=== PATIENT | female | born 1990 | race Caucasian/White ===

== ENCOUNTER 2017-04-24 11:27 | Outpatient (CLI) | payer OTHER ==
[2017-04-24 14:05] LABS: THYROID STIMULATING HORMONE 1.36 uIU/mL (0.34-5.60)
== END 2017-04-24 11:28 | disposition home or self-care (01) ==
LOC: LAB 11:27
PROVIDERS: ATTEND Obstetrics & Gynecology
DX: N92.6 Irregular menstruation, unspecified (principal)
CPT/HCPCS: 36415; 84439; 84443; 84481

== ENCOUNTER 2017-05-30 13:18 | Outpatient (CLI) | payer OTHER ==
--- NOTE | 2017-05-30 14:49 | MRI Report ---
EXAM: LEFT WRIST MRI WITHOUT CONTRAST EXAM DATE: 05/30/2017 01:58 PM. CLINICAL HISTORY: Left wrist pain for 9 months. Cyst. COMPARISON: LEFT WRIST RADIOGRAPHY 04/13/2017. TECHNIQUE: Multiplanar, multisequence T1-weighted and fluid-sensitive sequences of the wrist without contrast. Other: Marker at ventral and radial wrist corresponding to the site of concern. FINDINGS: Bones: No fractures or subluxations. No marrow edema. No bone lesions. Cartilage: The articular cartilage is unremarkable. The triangular fibrocartilage complex is unremark able. Ligaments: The scapholunate and lunotriquetral ligaments are intact. The visualized other intrinsic, extrinsic and collateral ligaments are unremarkable. Tendons: The extensor compartment I through and flexor tendons are unremarkable. Musculature: No edema or fatty atrophy. Other: The contents of the carpal tunnel, including the median nerve, are unremarkable. Guyons canal is unremarkable. There is a cluster of small ganglion cysts of overall size 5 x 5 x 2 mm in the vent ral and radial wrist, superficial to the flexor carpi radialis, corresponding to the site of concern. . There is also a separate small ganglion cyst dorsal and lateral to the trapezium measuring about 4. 5 X 2 x 1.8 mm. No joint effusions. The subcutaneous tissues are unremarkable. IMPRESSION: 1. There is a cluster of small ganglion cysts of overall size 5 x 5 x 2 mm in the ventral and radial wrist, superficial to the flexor carpi radialis, corresponding to the site of concern. 2. There is also a separate small ganglion cyst dorsal and lateral to the trapezium measuring about 4 .5 X 2 x 1.8 mm. 3. No other MRI abnormalities in the wrist. [facility] MUSCULOSKELET[facility]IOLOGY SECTION Referring Provider Line: [phone] SITE ID: [id number]
== END 2017-05-30 13:19 | disposition home or self-care (01) ==
LOC: DI 13:18
PROVIDERS: ATTEND Orthopaedic Surgery
DX: M67.432 Ganglion, left wrist (principal)

== ENCOUNTER 2017-06-13 12:46 | Day surgery (SDC) | payer OTHER ==
[2017-06-13] MEDS ORDERED: LACTATED RINGERS 1,000 ML IV ONE (12:57)
[2017-06-13 13:11] LABS: HCG UR QUAL NEGATIVE
[2017-06-13] MEDS ORDERED: BUPIVACAINE 0.25%-EPI 1:200000 PF 30 ML VIAL SUBQ ONE ×4 (15:16→15:48)
[2017-06-13] MEDS ORDERED: ONDANSETRON 4 MG/2 ML VIAL IVP ONE (16:30)
[2017-06-13] MEDS ORDERED: KETOROLAC 30 MG/ML VIAL IVP ONE (16:30)
[2017-06-13] MEDS ORDERED: DEXAMETHASONE 4 MG/ML VIAL IVP ONE (16:30)
[2017-06-13] MEDS ORDERED: METOCLOPRAMIDE 10 MG/2 ML VIAL IVP ONE (16:30)
[2017-06-13] MEDS ORDERED: PROPOFOL 200 MG/20 ML VIAL IVP ONE (16:30)
[2017-06-13] MEDS ORDERED: LIDOCAINE-MPF 2% 5 ML VIAL IM ONE (16:30)
[2017-06-13 16:54] VITALS: BP 97/58
--- NOTE | 2017-06-14 12:20 | OPERATIVE REPORT ---
DATE OF SURGERY: 06/13/2017 00:00:00 PREOPERATIVE DIAGNOSIS: Left wrist volar radial ganglion. POSTOPERATIVE DIAGNOSIS: Left wrist volar radial ganglion at the flexor carpi radialis insertion site . NAME OF PROCEDURE: Excision of ganglion, left volar radial wrist. OPERATING SURGEON: Mohan Buenrostro MD. ANESTHESIA: Local MAC. INDICATIONS FOR SURGERY: The patient is a 27-year-old female who has had an ongoing problem of a smal l ganglion cyst that is tender and bothersome at the volar radial aspect of her wrist at the insertio n point of the flexor carpi radialis. The patient has had problems with tenderness in that area and p ain at the base of her thumb that is worsened with use of her thumb. She desires excision of the gang lion. The presence of the ganglion has been identified also on MRI. FINDINGS AT SURGERY: The patient had a very small localized ganglion at the site of insertion of the distal flexor carpi radialis and extending from the sheath. This had ganglion fluid and at the presen t time was not large. It did not have extending satellite lesions. There was no other abnormality not ed about the tendon or the surrounding tissues. DESCRIPTION OF OPERATIVE PROCEDURE: The patient was taken to the operating room, was given sedation. Her left wrist was sterilely prepped and draped in the standard fashion. Esmarch was used for a tourn iquet on her forearm. The area was infiltrated with 1% lidocaine with epinephrine. Once anesthetized, a linear longitudinal incision of about 1 inch was made centered over the end of the flexor carpi ra dialis. Dissection was taken down to the flexor sheath on its radial aspect and at this point the les ion was encountered extending from the synovial sheath. This lesion and its surrounding tissue was co mpletely excised, removed, and a careful inspection was made at the base and the surrounding tissues with no other ganglion or satellite lesions found. Cautery was used to control bleeding and closure w as made with interrupted 4-0 nylon suture. Sterile dressings were applied and a well-padded splint an d the patient was taken to recovery room in stable condition. ESTIMATED BLOOD LOSS: Minimal. COMPLICATIONS: None. SPONGE AND NEEDLE COUNTS: Correct. JOB #: [id number] EXT JOB #:[id number]
== END 2017-06-13 12:47 | disposition home or self-care (01) ==
LOC: SDS 12:46
PROVIDERS: ATTEND Orthopaedic Surgery
PROC: 0LB60ZZ Excision of Left Lower Arm and Wrist Tendon, Open Approach (ICD-10-PCS; principal; 2017-06-13 14:15)
DX: M67.432 Ganglion, left wrist (principal)
CPT/HCPCS: 25111; 81025; J7120

== ENCOUNTER 2018-10-03 10:53 | Outpatient (CLI) | payer OTHER ==
--- NOTE | 2018-10-03 13:58 | Ultrasound Report ---
Reason: BREAST PAIN, LEFT Procedure Date: 10/03/2018 Accession Number: [id number] / [id number] Procedure: US - Breast Unilateral Limited CPT Code: FULL RESULT: EXAM: Breast Unilateral Limited DATE: 10/03/2018 11:32 AM CLINICAL HISTORY: BREAST PAIN, LEFT COMPARISON: None. TECHNIQUE: Targeted ultrasound was performed of the left breast in the area of clinical concern in the periareolar region. Color Doppler was employed as appropriate. FINDINGS: Only normal breast tissue with out architectural distortion collection, mass or abnormal vascularity by color Doppler is seen. IMPRESSION: Negative examination RECOMMENDATION: Clinical follow-up. BIRADS CATEGORY 1: Negative [facility]
== END 2018-10-03 10:54 | disposition home or self-care (01) ==
LOC: DI 10:53
PROVIDERS: ATTEND Obstetrics & Gynecology
DX: N64.4 Mastodynia (principal); N63.20 Unspecified lump in the left breast, unspecified quadrant
CPT/HCPCS: 76642

== ENCOUNTER 2018-10-29 02:06 | Outpatient (CLI) | payer OTHER | END 2018-10-29 02:07 | disposition critical access hospital (66) | LOC: EMS 02:06 | PROVIDERS: ATTEND Surgery | DX: R11.2 Nausea with vomiting, unspecified (principal); R25.1 Tremor, unspecified; R40.0 Somnolence | CPT/HCPCS: A0425; A0427 ==

== ENCOUNTER 2018-10-29 02:17 | Emergency (ER) | payer OTHER ==
[2018-10-29] MEDS ORDERED: ONDANSETRON 4 MG/2 ML VIAL IVP STA ×2 (02:29→04:54)
[2018-10-29] MEDS ORDERED: SODIUM CHLORIDE 0.9% 1,000 ML IV ONE ×2 (02:29→04:04)
--- NOTE | 2018-10-29 02:34 | ED Physician Documentation ---
PD HPI NVD - Stated complaint Stated Complaint: VOMITING - Chief complaint Chief Complaint: Abd Pain - History obtained from History obtained from: Patient - History of Present Illness Timing - onset: How many minutes ago (90) Timing - details: Still present Associated symptoms: Dysuria Contributing factors: No: Bad food, Travel, Recent antibiotics, Alcohol use - Additonal information Additional information: The patient is an otherwise healthy 28-year-old female who arrives via ambulance after she developed vomiting and diarrhea about 1 hours prior to arrival. She denies abdominal pain, but does report urgency of urination prior to the onset of her vomiting. She has had tremors, but denies fever. Her last menstrual period was 1 week ago. She denies headache, sore throat, or cough. Review of her medical records reveals similar presentation with viral gastroenteritis 2 1/2 years ago. Review of Systems Constitutional: reports: Other (tremors). denies: Fever Eyes: denies: Discharge Ears: denies: Tinnitus/ringing Nose: denies: Congestion Throat: denies: Sore throat Cardiac: denies: Chest pain / pressure Respiratory: denies: Dyspnea, Cough GI: reports: Nausea, Vomiting, Diarrhea. denies: Abdominal Pain : reports: Dysuria, Hesitancy Skin: denies: Rash Musculoskeletal: denies: Back pain Neurologic: denies: Focal weakness, Numbness, Headache PD PAST MEDICAL HISTORY - Past Medical History Cardiovascular: None Respiratory: None Endocrine/Autoimmune: None GI: None : None HEENT: Chronic vision loss Psych: Depression Musculoskeletal: None Derm: None - Past Surgical History Past Surgical History: No HEENT: Other - Present Medications Home Medications: Ambulatory Orders Medication Instructions Recorded Confirmed Albuterol Sulfate [Proair Hfa 1 - 2 puffs INH Q4H PRN 06/12/17 06/13/17 Inhaler] Multivitamin [Multiple Vitamins] 1 each PO DAILY 06/12/17 06/13/17 Nitrofurantoin Monohyd/M-Cryst 100 mg PO BID #10 capsule 10/29/18 [Macrobid 100 mg Capsule] Phenazopyridine HCl [Pyridium] 200 mg PO TID PRN #6 tablet 10/29/18 Potassium Chloride [K-Dur] 20 meq PO DAILY #7 tablet 10/29/18 Promethazine [Phenergan] 25 mg PO Q6H PRN #10 tab 10/29/18 - Allergies Allergies/Adverse Reactions: Allergies Allergy/AdvReac Type Severity Reaction Status Date / Time cephalexin monohydrate * Allergy Rash Verified 10/29/18 02:27 [From Keflex] - Social History Does the pt smoke?: No Smoking Status: Never smoker Does the pt drink ETOH?: No Does the pt have substance abuse?: No - Immunizations Immunizations are current?: Yes - POLST Patient has POLST: No PD ED PE NORMAL - Vitals Vital signs reviewed: Yes (tachycardic) - General General: Alert and oriented X 3, Well developed/nourished - HEENT HEENT: Atraumatic, Moist mucous membranes, Pharynx benign - Neck Neck: Supple, no meningeal sign, No adenopathy - Cardiac Cardiac: No murmur, Other (Rapid rate, regular rhythm.) - Respiratory Respiratory: No respiratory distress, Clear bilaterally - Abdomen Abdomen: Soft, Non tender - Back Back: No CVA TTP - Derm Derm: No rash - Extremities Extremities: No edema, No calf tenderness / cord - Neuro Neuro: Alert and oriented X 3, No motor deficit, Normal speech Results - Vitals Vitals: Oxygen O2 Source Room air - Labs Labs: Microbiology 10/29/18 04:20 Urine Culture - Final Urine,Clean Catch 10-50,000 COLONIES/ML Polymicrobial growth including potential pathogens. This is suggestive of skin or other contamination. Laboratory Tests 10/29/18 10/29/18 10/29/18 02:38 02:38 04:20 WBC 19.3 H RBC 4.59 Hgb 13.9 Hct 41.3 MCV 89.9 MCH 30.2 MCHC 33.6 RDW 12.9 Plt Count 238 MPV 7.7 L Neut # (Auto) 16.1 H Lymph # (Auto) 1.2 L [place] # (Auto) 2.0 H Eos # (Auto) 0.0 Baso # (Auto) 0.0 Absolute Nucleated RBC 0.00 Nucleated RBC % 0.0 Sodium 139 Potassium 3.1 L Chloride 106 Carbon Dioxide 21 Anion Gap 12.0 BUN 17 Creatinine 0.7 Estimated GFR (MDRD) 99 Glucose 131 H Calcium 9.2 Total Bilirubin 1.0 AST 21 ALT 14 Alkaline Phosphatase 39 L Total Protein 7.4 Albumin 4.3 Globulin 3.1 Albumin/Globulin Ratio 1.4 Lipase 30 Urine Color YELLOW Urine Clarity CLEAR Urine pH 7.0 Ur Specific [place] 1.010 Urine Protein NEGATIVE Urine Glucose (UA) NEGATIVE Urine Ketones TRACE Urine Occult Blood MODERATE H Urine Nitrite NEGATIVE Urine Bilirubin NEGATIVE Urine Urobilinogen 0.2 (NORMAL) Ur Leukocyte Esterase SMALL H Urine RBC 6-10 H Urine WBC >25 H Ur Squamous Epith Cells RARE Squamous Urine Bacteria Few Ur Microscopic Review INDICATED Urine Culture Comments INDICATED Urine HCG, Qual NEGATIVE PD MEDICAL DECISION MAKING - ED course Complexity details: reviewed old records, reviewed results, re-evaluated patient, considered differential, d/w patient ED course: The patient's presentation is significant for urinary tract infection, with a positive urinalysis. Culture and sensitivity are pending. Her vomiting may be due to the urinary tract infection, but gastroenteritis is also a consideration. Her presentation does not suggest pyelonephritis, and I doubt sepsis. Her chemistry panel does reveal mild hypokalemia, with a potassium of 3.1. Treatment in the emergency department included administration of normal saline 2 L IV, Zofran 4 mg IV 2, potassium 20 mEq orally, Macrobid 1 tablet orally, and Pyridium 200 mg orally. She is being discharged with prescriptions for Macrobid, Pyridium, and supplemental potassium. I discussed with her the expected course of illness, antibiotic treatment and outpatient follow-up, as well as potentially worrisome signs or symptoms that should prompt reevaluation in the emergency department. Departure - Departure Disposition: 01 Home, Self Care Clinical Impression: Gastroenteritis, Dehydration, Hypokalemia Urinary tract infection Qualifiers: Urinary tract infection type: acute cystitis Hematuria presence: without hematuria Qualified Code(s): N30.00 - Acute cystitis without hematuria Condition: Stable Instructions: ED Gastroenteritis Vs Food Poison, ED UTI Cystitis Female Follow-Up: Zeynep Tesfaye MD [Provider Admit Priv/Credential] - Prescriptions: Nitrofurantoin Monohyd/M-Cryst [Macrobid 100 mg Capsule] 100 mg PO BID #10 capsule Phenazopyridine HCl [Pyridium] 200 mg PO TID PRN #6 tablet PRN Reason: dysuria Potassium Chloride [K-Dur] 20 meq PO DAILY #7 tablet Promethazine [Phenergan] 25 mg PO Q6H PRN #10 tab PRN Reason: Nausea / Vomiting Comments: Drink plenty of fluids, including cranberry juice. Take Macrobid twice daily as prescribed. Take Pyridium as prescribed if needed for dysuria. You can use Phenergan as prescribed if needed for nausea. Take potassium once daily for 7 days as prescribed. Follow-up with your primary physician within 1-2 weeks. Call to schedule appointment. Return to the emergency department if you develop increasing abdominal pain, persistent vomiting, fever with shaking chills, or otherwise worsening symptoms. Discharge Date/Time: 10/29/18 06:41
[2018-10-29 02:50] LABS: BASOPHILS % (AUTO) 0.2 %; EOSINOPHILS % (AUTO) 0.1 %; HGB - HEMOGLOBIN 13.9 g/dL (12.0-16.0); LYMPHOCYTES # (AUTO) 1.2 10^3/uL (1.5-3.5); LYMPHOCYTES % (AUTO) 6.2 %; MEAN CORPUSCULAR HEMOGLOBIN 30.2 pg (27.0-31.0); MEAN CORPUSCULAR HGB CONC 33.6 g/dL (32.0-36.0); MEAN CORPUSCULAR VOLUME 89.9 fL (81.0-99.0); MEAN PLATELET VOLUME 7.7 fL (7.9-10.8); MONOCYTES % (AUTO) 10.2 %; NEUTROPHILS # (AUTO) 16.1 10^3/uL (1.5-6.6); NEUTROPHILS % (AUTO) 83.3 %; PLT - PLATELET COUNT 238 10^3/uL (130-450); RED BLOOD COUNT 4.59 10^6/uL (4.20-5.40); RED CELL DISTRIBUTION WIDTH 12.9 % (12.0-15.0); WHITE BLOOD COUNT 19.3 x10^3/uL (4.8-10.8)
[2018-10-29 02:56] LABS: ALBUMIN 4.3 g/dL (3.2-5.5); ALBUMIN/GLOBULIN RATIO 1.4 (1.0-2.2); CALCIUM 9.2 mg/dL (8.5-10.3); CREATININE 0.7 mg/dL (0.4-1.0); TOTAL PROTEIN 7.4 g/dL (6.7-8.2)
[2018-10-29] MEDS ORDERED: POTASSIUM CHLORIDE 20 MEQ TABLET PO STA (04:18)
[2018-10-29 04:26] VITALS: BP 102/69
[2018-10-29 04:38] LABS: BILIRUBIN,URINE NEGATIVE (NEGATIVE); GLUCOSE, URINE (UA) NEGATIVE (NEGATIVE); KETONES,URINE (UA) TRACE mg/dL (NEGATIVE); LEUKOCYTE ESTERASE, URINE SMALL (NEGATIVE); NITRITE,URINE NEGATIVE (NEGATIVE); OCCULT BLOOD,URINE MODERATE (NEGATIVE); PROTEIN,URINE NEGATIVE (NEGATIVE); UROBILINOGEN,URINE 0.2 (NORMAL) E.U./dL (NORMAL)
[2018-10-29 04:39] LABS: CLARITY,URINE CLEAR (CLEAR)
[2018-10-29 04:40] LABS: HCG UR QUAL NEGATIVE
[2018-10-29 04:44] LABS: BACTERIA,URINE Few /HPF (None Seen); SQUAMOUS EPITHELIAL CELL,UR RARE Squamous (<= Few)
[2018-10-29] MEDS ORDERED: NITROFURANTOIN MACRO 100 MG CAPSULE PO STA (04:50)
[2018-10-29] MEDS ORDERED: PHENAZOPYRIDINE 100 MG TABLET PO STA (04:50)
== END 2018-10-29 06:41 | disposition home or self-care (01) ==
LOC: EDUNIT# → ED 02:17
DX: N30.00 Acute cystitis without hematuria (principal); K52.9 Noninfective gastroenteritis and colitis, unspecified; E86.0 Dehydration; E87.6 Hypokalemia
CPT/HCPCS: 36415; 80053; 81001; 81025; 83690; 85025; 87086; 96361; 96374; 96375; 99283; 99284; A9270; 81003

== ENCOUNTER 2018-10-31 09:00 | Outpatient (CLI) | payer OTHER ==
[2018-10-31 19:15] LABS: BILIRUBIN,URINE NEGATIVE (NEGATIVE); KETONES,URINE (UA) NEGATIVE (NEGATIVE); LEUKOCYTE ESTERASE, URINE NEGATIVE (NEGATIVE); OCCULT BLOOD,URINE NEGATIVE (NEGATIVE); PH,URINE 5.5 PH (5.0-7.5)
[2018-10-31 19:37] LABS: CLARITY,URINE CLEAR (CLEAR)
[2018-10-31 19:38] LABS: BACTERIA,URINE None Seen /HPF (None Seen); RBC,URINE None Seen /HPF (0-5); SQUAMOUS EPITHELIAL CELL,UR MOD Squamous (<= Few)
== END 2018-10-31 09:01 | disposition home or self-care (01) ==
LOC: LAB.WCP 09:00
PROVIDERS: ATTEND Physician Assistant
DX: R30.0 Dysuria (principal)
CPT/HCPCS: 81001; 87086

== ENCOUNTER 2018-11-27 09:40 | Outpatient (CLI) | payer OTHER | END 2018-11-27 09:41 | disposition home or self-care (01) | LOC: LAB.WCP 09:40 | PROVIDERS: ATTEND Family Medicine | DX: N12 Tubulo-interstitial nephritis, not specified as acute or chronic (principal) | CPT/HCPCS: 87086 ==

== ENCOUNTER 2019-07-29 11:10 | Outpatient (CLI) | payer OTHER | END 2019-07-29 23:59 | disposition home or self-care (01) | LOC: LAB.WCP 11:10 | PROVIDERS: ATTEND Physician Assistant | DX: F32.9 Major depressive disorder, single episode, unspecified (principal) | CPT/HCPCS: 36415; 82306; 84443 ==

== ENCOUNTER 2020-09-30 13:18 | Outpatient (CLI) | payer OTHER ==
--- NOTE | 2020-10-01 08:53 | Ultrasound Report ---
PROCEDURE: Head or Neck Soft Tissue INDICATIONS: LYMPHADENOPATHY, THYROMEGALY TECHNIQUE: Real time scanning was performed of the neck region of interest, with image documentation . COMPARISON: None. FINDINGS: The thyroid was evaluated sonographically and the isthmus is seen to be normal in thickness at 2 mm. The right thyroid lobe measures 1.3 x 1.5 x 5.4 cm and the left measures 1.2 x 1.7 x 5.5 cm . No solid or partially solid thyroid mass is found incidental note is made of a small right inferior thyroid colloid cyst measuring less than 5 mm. There is a mildly prominent right submandibular lymph node measuring up to 2.5 x 0.8 x 2.2 cm. Normal cortical thickness of 3 mm. IMPRESSION: The thyroid gland is not significantly enlarged, as discussed above. No solid thyroid nodules found. Lymph node with normal cortical thickness noted at the right submandibular region, measuring 2.5 x 0. 8 x 2.2 cm and with a normal cortical thickness of only 3 mm. Continued clinical follow-up is recomme nded, and if unusual symptoms persist or increase follow-up by contrast-enhanced neck CT scanning lik michael is warranted. Reviewed by: Shane Rogers MD on 10/01/2020 8:51 AM PST Approved by: Shane Rogers MD on 10/01/2020 8:51 AM PST Station ID: [id number]
== END 2020-09-30 13:19 | disposition home or self-care (01) ==
LOC: DI 13:18
PROVIDERS: ATTEND Physician Assistant
DX: R59.1 Generalized enlarged lymph nodes (principal)

== ENCOUNTER 2022-08-17 07:05 | Emergency (ER) | payer OTHER ==
--- NOTE | 2022-08-17 09:00 | XRAY Report ---
PROCEDURE: Chest 1 View X-Ray INDICATIONS: cough/SOA TECHNIQUE: One view of the chest was acquired. COMPARISON: None. FINDINGS: Surgical changes and devices: None. Lungs and pleura: No pleural effusions or pneumothorax. Lungs are clear. Mediastinum: Mediastinal contours appear normal. Heart size is normal. Bones and chest wall: No suspicious bony lesions. Overlying soft tissues appear unremarkable. IMPRESSION: No acute process. Reviewed by: Abhishek Grimaldo MD on 08/17/2022 8:58 AM [facility] Approved by: Abhishek Grimaldo MD on 08/17/2022 8:58 AM [facility] Station ID: [id number]
[2022-08-17 10:08] LABS: B. PARAPERTUSSIS- RESP PCR PAN NOT DETECTED; B. PERTUSSIS- RESP PCR PANEL NOT DETECTED; C. PNEUMONIAE- RESP PCR PANEL NOT DETECTED; CORONAVIRUS 229E-RESP PCR NOT DETECTED; CORONAVIRUS HKU1-RESP PCR NOT DETECTED; CORONAVIRUS NL63-RESP PCR NOT DETECTED; CORONAVIRUS OC43-RESP PCR NOT DETECTED; HUMAN METAPNEUMOVIRUS NOT DETECTED; INFLUENZA A- RESP PCR PANEL NOT DETECTED; INFLUENZA B - RESP PCR PANEL NOT DETECTED; M. PNEUMONIAE- RESP PCR PANEL NOT DETECTED; PARAINFLUENZA VIRUS 1 NOT DETECTED; PARAINFLUENZA VIRUS 2 NOT DETECTED; PARAINFLUENZA VIRUS 3 NOT DETECTED; PARAINFLUENZA VIRUS 4 NOT DETECTED; RHINOVIRUS/ENTEROVIRUS NOT DETECTED; RSV- RESP PCR PANEL NOT DETECTED; SARS-CoV-2 -RESP PCR PANEL NOT DETECTED
--- NOTE | 2022-08-17 10:53 | ED Physician Documentation ---
PD HPI DYSPNEA - Stated complaint Stated Complaint: SOA, COLD HANDS/FEET - Chief complaint Chief Complaint: Resp - History obtained from History obtained from: Patient - Additional information Additional information: Patient is a 32-year-old female with a history of asthma presenting for evaluation of nonproductive cough and feeling short of breath for 1 month. She reports having the flu over a month ago and since that time her asthma has continued to flare up. She at times needs to use her rescue inhaler up to 4-5 times a day. She was recently seen by her primary care provider who started her on Flovent twice a day. She was also given a prescription for prednisone to use as needed. She took 1 dose yesterday but it only gave her some improvement for a few hours.She denies fever, sore throat, chest pain, labored breathing, abdominal pain. Review of Systems Constitutional: denies: Fever Nose: denies: Congestion Cardiac: denies: Chest pain / pressure Respiratory: reports: Dyspnea, Cough GI: denies: Abdominal Pain Neurologic: denies: Headache PD PAST MEDICAL HISTORY - Past Medical History Cardiovascular: None Respiratory: None Endocrine/Autoimmune: None GI: None : None HEENT: Chronic vision loss Psych: Depression Musculoskeletal: None Derm: None - Past Surgical History Past Surgical History: No HEENT: Other - Present Medications Home Medications: Ambulatory Orders Medication Instructions Recorded Confirmed Albuterol Sulfate [Proair Hfa 1 - 2 puffs INH Q4H PRN 06/12/17 08/17/22 Inhaler] buPROPion [Wellbutrin Sr] 150 mg PO DAILY 08/17/22 08/17/22 busPIRone [Buspar] 10 mg PO BID 08/17/22 08/17/22 predniSONE [Deltasone] 60 mg PO DAILY 5 Days #15 tablet 08/17/22 - Allergies Allergies/Adverse Reactions: Allergies Allergy/AdvReac Type Severity Reaction Status Date / Time cephalexin monohydrate * Allergy Rash Verified 08/17/22 07:25 [From Keflex] - Social History Does the pt smoke?: No Smoking Status: Never smoker Does the pt drink ETOH?: No Does the pt have substance abuse?: No - Immunizations Immunizations are current?: Yes - POLST Patient has POLST: No PD ED PE NORMAL - General General: Alert and oriented X 3, No acute distress, Well developed/nourished - HEENT HEENT: Atraumatic, Moist mucous membranes, Pharynx benign - Neck Neck: Supple, no meningeal sign - Cardiac Cardiac: RRR, No murmur - Respiratory Respiratory: No respiratory distress, Clear bilaterally - Extremities Extremities: No edema, No calf tenderness / cord - Neuro Neuro: Normal speech Results - Vitals Vitals: Vital Signs - 24 hr 08/17/22 08/17/22 07:22 11:08 Temperature 37.5 C Heart Rate 94 71 Respiratory 16 Rate Blood Pressure 102/66 103/69 O2 Saturation 98 100 Oxygen O2 Source Room air - Labs Labs: Laboratory Tests 08/17/22 09:00 Nasal Adenovirus (PCR) NOT DETECTED Nasal B. parapertussis DNA (PCR) NOT DETECTED Nasal Coronavir 229E PCR NOT DETECTED Nasal Coronavir HKU1 PCR NOT DETECTED Nasal Coronavir NL63 PCR NOT DETECTED Nasal Coronavir OC43 PCR NOT DETECTED Nasal Enterovir/Rhinovir PCR NOT DETECTED Nasal Influenza B PCR NOT DETECTED Nasal Influenza A PCR NOT DETECTED Nasal Parainfluen 1 PCR NOT DETECTED Nasal Parainfluen 2 PCR NOT DETECTED Nasal Parainfluen 3 PCR NOT DETECTED Nasal Parainfluen 4 PCR NOT DETECTED Nasal RSV (PCR) NOT DETECTED Nasal B.pertussis DNA PCR NOT DETECTED Nasal C.pneumoniae (PCR) NOT DETECTED Dominick Human Metapneumo PCR NOT DETECTED Nasal M.pneumoniae (PCR) NOT DETECTED Nasal SARS-CoV-2 (PCR) NOT DETECTED PD Medical Decision Making - ED course Complexity details: reviewed results, re-evaluated patient ED course: Patient presenting for evaluation of a nonproductive cough that has been lingering for 1 month and at times requiring More frequent use of her albuterol. She has only tried 1 dose of prednisone which and checking her prescriptions looks to be only 20 mg.I suspect that her recent viral illness has exacerbated her asthma and feel that a steroid burst would be helpful. Discussed this with the patient who is agreeable. We will start the patient on a 5-day course of steroids. Patient counseled on need for follow-up with her PCP. She does not appear labored with her breathing. Her chest x-ray is negative for pneumonia.PERC negative. Departure - Departure Disposition: 01 Home, Self Care Clinical Impression: Asthma with exacerbation Condition: Stable Instructions: Asthma Dc Prescriptions: predniSONE [Deltasone] 60 mg PO DAILY 5 Days #15 tablet Comments: I am prescribing a 5-day course of prednisone in hopes of getting this asthma exacerbation under control.I have sent the prescription to [email or web address] in [place]. Please complete the full course of the prednisone. Please use your inhalers as directed. Please have close follow-up with your primary care doctor if your symptoms or not improving. Return to the ER if you have worsening symptoms such as labored breathing or any other concerns. Your respiratory panel which checks for COVID, influenza, RSV and a number of other cold viruses is negative. Your chest x-ray is clear and there are no signs of pneumonia. Discharge Date/Time: 08/17/22 11:08
[2022-08-17 11:09] VITALS: BP 103/69
== END 2022-08-17 11:08 | disposition home or self-care (01) ==
LOC: ED 07:05
DX: J45.901 Unspecified asthma with (acute) exacerbation (principal); Z20.822 Contact with and (suspected) exposure to COVID-19
CPT/HCPCS: 87633; 99284

== ENCOUNTER 2022-08-24 13:25 | Emergency (ER) | payer OTHER ==
--- NOTE | 2022-08-24 16:15 | ED Physician Documentation ---
PD HPI DYSPNEA - Stated complaint Stated Complaint: SOA/CHEST PX - Chief complaint Chief Complaint: Resp - History obtained from History obtained from: Patient - Additional information Additional information: 32-year-old woman with history of exercise-induced asthma is having having a lot of trouble since a flulike illness about 5 weeks ago with shortness of breath and wheezing especially exertionally. She was seen here about a week ago and given prednisone which was very helpful. That said the symptoms of chest burning and wheezing and shortness of breath worsened after cessation of the steroids. She denies pedal edema, calf pain, fevers, recent travel. She has had a cough but nonproductive. Review of Systems Constitutional: denies: Fever, Chills Cardiac: denies: Palpitations Respiratory: reports: Dyspnea, Cough PD PAST MEDICAL HISTORY - Past Medical History Cardiovascular: None Respiratory: None Endocrine/Autoimmune: None GI: None : None HEENT: Chronic vision loss Psych: Depression Musculoskeletal: None Derm: None - Past Surgical History Past Surgical History: No HEENT: Other - Present Medications Home Medications: Ambulatory Orders Medication Instructions Recorded Confirmed Albuterol Sulfate [Proair Hfa 1 - 2 puffs INH Q4H PRN 06/12/17 08/24/22 Inhaler] buPROPion [Wellbutrin Sr] 150 mg PO DAILY 08/17/22 08/24/22 busPIRone [Buspar] 10 mg PO BID 08/17/22 08/24/22 predniSONE [Deltasone] 60 mg PO DAILY 5 Days #15 tablet 08/17/22 08/24/22 predniSONE [Deltasone] 20 mg PO [id number] #21 tab 08/24/22 - Allergies Allergies/Adverse Reactions: Allergies Allergy/AdvReac Type Severity Reaction Status Date / Time cephalexin monohydrate * Allergy Rash Verified 08/24/22 13:50 [From Keflex] - Social History Does the pt smoke?: No Smoking Status: Never smoker Does the pt drink ETOH?: No Does the pt have substance abuse?: No - Immunizations Immunizations are current?: Yes - POLST Patient has POLST: No PD ED PE NORMAL - Vitals Vital signs reviewed: Yes - General General: Alert and oriented X 3, No acute distress - Neck Neck: Supple, no meningeal sign, No bony TTP - Cardiac Cardiac: RRR, No murmur - Respiratory Respiratory: No respiratory distress, Clear bilaterally - Abdomen Abdomen: Non tender - Derm Derm: Normal color, Warm and dry - Neuro Neuro: Alert and oriented X 3, Normal speech Results - Vitals Vitals: Vital Signs - 24 hr 08/24/22 13:48 Temperature 37.0 C Heart Rate 79 Respiratory 16 Rate Blood Pressure 113/75 O2 Saturation 99 Oxygen O2 Source Room air - EKG (time done) 1634 Rate: Rate (enter#) (71) Rhythm: NSR [place]: Normal Intervals: Normal [place] QRS: Normal Ischemia: Normal ST segments Departure - Departure Disposition: 01 Home, Self Care Clinical Impression: Asthma with exacerbation Condition: Good Record reviewed to determine appropriate education?: Yes Instructions: Asthma Dc Prescriptions: predniSONE [Deltasone] 20 mg PO [id number] #21 tab Comments: Call your doctor to arrange a follow-up appointment, make the next available appointment. In the interim, return anytime if worse or if new symptoms develop.
[2022-08-24 16:44] VITALS: BP 120/65
== END 2022-08-24 16:44 | disposition home or self-care (01) ==
LOC: ED 13:25
DX: J45.901 Unspecified asthma with (acute) exacerbation (principal)
CPT/HCPCS: 93005; 99283; 99284

== ENCOUNTER 2022-08-31 14:57 | Outpatient (CLI) | payer OTHER ==
[2022-08-31 15:58] VITALS: BP 120/76
== END 2022-08-31 14:58 | disposition home or self-care (01) ==
LOC: MAC.MOP 14:57
PROVIDERS: ATTEND Nurse Practitioner
DX: R00.2 Palpitations (principal)
CPT/HCPCS: 93246

== ENCOUNTER 2022-09-29 13:06 | Outpatient (CLI) | payer OTHER | END 2022-09-29 13:07 | disposition home or self-care (01) | LOC: MAC.INF 13:06 | PROVIDERS: ATTEND Nurse Practitioner | DX: R00.2 Palpitations (principal); I49.1 Atrial premature depolarization; I49.3 Ventricular premature depolarization | CPT/HCPCS: 93248 ==

== ENCOUNTER 2022-11-14 10:22 | Outpatient (CLI) | payer OTHER ==
--- NOTE | 2022-11-15 07:02 | Ultrasound Report ---
PROCEDURE: Head or Neck Soft Tissue INDICATIONS: DYSPHAGIA TECHNIQUE: Real-time scanning was performed of the thyroid gland, with image documentation. COMPARISON: Thyroid ultrasound, 09/30/2020 FINDINGS: Right: Thyroid lobe measures 5.3 x 0.9 x 1.2 cm, and is homogeneous in echotexture. Left: Thyroid lobe measures 5.0 x 1.2 x 1.5 cm, and is homogenous in echotexture. Isthmus: 0.2 mm thick. No mass or enlarged lymph nodes are visualized. IMPRESSION: Normal ultrasound appearance of thyroid. A cause for dysphasia is not identified. Reviewed by: Nikki Perez MD on 11/15/2022 7:01 AM PDT Approved by: Nikki Perez MD on 11/15/2022 7:01 AM PDT Station ID: [id number]
== END 2022-11-14 10:23 | disposition home or self-care (01) ==
LOC: DI 10:22
PROVIDERS: ATTEND Nurse Practitioner
DX: R13.10 Dysphagia, unspecified (principal)

== ENCOUNTER 2023-04-11 14:21 | Outpatient (CLI) | payer OTHER ==
--- NOTE | 2023-04-11 17:39 | XRAY Report ---
PROCEDURE: Thoracic Spine 3 View INDICATIONS: THORACIC BACK PAIN TECHNIQUE: 2 views of the thoracic spine were acquired. COMPARISON: None. FINDINGS: Bones: No fractures or dislocations. No suspicious bony lesions. 12 pairs of ribs are noted, and a ppear intact where visualized. Soft tissues: No paravertebral stripe thickening. IMPRESSION: This is a normal study. Reviewed by: Aiden Arias MD on 04/11/2023 5:37 PM PDT Approved by: Aiden Arias MD on 04/11/2023 5:37 PM PDT Station ID: [id number]
--- NOTE | 2023-04-11 17:39 | XRAY Report ---
PROCEDURE: Lumbar Spine 2 View INDICATIONS: BACK PAIN,LUMBAR TECHNIQUE: 2 views of the lumbar spine were acquired. COMPARISON: None. FINDINGS: Bones: 5 [id number] vertebrae are present. There is normal bony alignment. No vertebral body compression fractures. No suspicious bony lesions. Soft tissues: Overlying bowel gas pattern is normal. No suspicious soft tissue calcifications. IMPRESSION: Unremarkable radiographic examination of lumbar spine. Reviewed by: Aiden Arias MD on 04/11/2023 5:37 PM PDT Approved by: Aiden Arias MD on 04/11/2023 5:37 PM PDT Station ID: [id number]
== END 2023-04-11 14:22 | disposition home or self-care (01) ==
LOC: DI 14:21
PROVIDERS: ATTEND Nurse Practitioner
DX: M54.6 Pain in thoracic spine (principal); M54.50 Low back pain, unspecified

== ENCOUNTER 2023-09-02 08:00 | Outpatient (CLI) | payer OTHER | END 2023-09-02 23:59 | disposition home or self-care (01) | LOC: LAB 08:00 | PROVIDERS: ATTEND Physician Assistant Medical | DX: N30.00 Acute cystitis without hematuria (principal) | CPT/HCPCS: 87086 ==

== ENCOUNTER 2023-09-13 13:39 | Emergency (ER) | payer OTHER ==
[2023-09-13 14:09] LABS: BASOPHILS % (AUTO) 0.4 %; EOSINOPHILS # (AUTO) 0.1 10^3/uL (0.0-0.7); LYMPHOCYTES # (AUTO) 2.5 10^3/uL (1.5-3.5); LYMPHOCYTES % (AUTO) 31.5 %; MEAN CORPUSCULAR HEMOGLOBIN 28.8 pg (27.0-31.0); MEAN CORPUSCULAR HGB CONC 31.7 g/dL (32.0-36.0); MEAN CORPUSCULAR VOLUME 90.9 fL (81.0-99.0); MEAN PLATELET VOLUME 8.7 fL (7.9-10.8); MONOCYTES # (AUTO) 0.8 10^3/uL (0.0-1.0); MONOCYTES % (AUTO) 10.7 %; NEUTROPHILS # (AUTO) 4.4 10^3/uL (1.5-6.6); PLT - PLATELET COUNT 304 10^3/uL (130-450); RED BLOOD COUNT 4.51 10^6/uL (4.20-5.40); RED CELL DISTRIBUTION WIDTH 12.2 % (12.0-15.0); WHITE BLOOD COUNT 7.8 x10^3/uL (4.8-10.8)
[2023-09-13 14:40] LABS: ALBUMIN 4.5 g/dL (3.2-5.5); ALBUMIN/GLOBULIN RATIO 1.6 (1.0-2.2); BILIRUBIN,TOTAL 0.4 mg/dL (0.2-1.0); CALCIUM 9.9 mg/dL (8.5-10.3); CREATININE 0.7 mg/dL (0.6-1.3); TOTAL PROTEIN 7.3 g/dL (6.4-8.9)
[2023-09-13 16:36] LABS: BILIRUBIN,URINE NEGATIVE (NEGATIVE); GLUCOSE, URINE (UA) NEGATIVE (NEGATIVE); KETONES,URINE (UA) NEGATIVE (NEGATIVE); LEUKOCYTE ESTERASE, URINE NEGATIVE (NEGATIVE); NITRITE,URINE NEGATIVE (NEGATIVE); OCCULT BLOOD,URINE NEGATIVE (NEGATIVE); PROTEIN,URINE NEGATIVE (NEGATIVE); UROBILINOGEN,URINE 0.2 (NORMAL) E.U./dL (NORMAL)
[2023-09-13 16:40] LABS: CLARITY,URINE CLEAR (CLEAR); HCG UR QUAL NEGATIVE
[2023-09-13 17:15] VITALS: O2SAT 98
--- NOTE | 2023-09-13 18:09 | ED Physician Documentation ---
PD HPI FEMALE - Stated complaint Stated Complaint: BACK PX,ABD PX,CHILLS - Chief complaint Chief Complaint: Abd Pain - History obtained from History obtained from: Patient - History of Present Illness Pain level max: 5 Pain level max: 3 Associated symptoms: No: Vaginal pain, Vaginal bleeding, Vaginal discharge - Additional information Additional information: Patient is a 33-year-old female who presents to the emergency department with intermittent pelvic pain and low back pain. She states that she had dysuria and still has dysuria occasionally. She was treated with Bactrim for UTI. Feels like her symptoms resolved and are starting to recur again. No vaginal bleeding or discharge. No STI exposure. No diarrhea or constipation. No nausea or vomiting. No changes in sexual partners. Nothing makes it better or worse. Review of Systems Constitutional: denies: Fever, Chills Respiratory: denies: Dyspnea, Cough GI: denies: Vomiting, Diarrhea : denies: Discharge, Vaginal bleeding Skin: denies: Rash Musculoskeletal: denies: Neck pain, Back pain Neurologic: denies: Headache PD PAST MEDICAL HISTORY - Past Medical History Cardiovascular: None Respiratory: None Endocrine/Autoimmune: None GI: None : None HEENT: Chronic vision loss Psych: Depression Musculoskeletal: None Derm: None - Past Surgical History Past Surgical History: No HEENT: Other - Present Medications Home Medications: Ambulatory Orders Medication Instructions Recorded Confirmed Albuterol Sulfate [Proair Hfa 1 - 2 puffs INH Q4H PRN 06/12/17 08/24/22 Inhaler] buPROPion [Wellbutrin Sr] 150 mg PO DAILY 08/17/22 08/24/22 busPIRone [Buspar] 10 mg PO BID 08/17/22 08/24/22 predniSONE [Deltasone] 60 mg PO DAILY 5 Days #15 tablet 08/17/22 08/24/22 predniSONE [Deltasone] 20 mg PO [id number] #21 tab 08/24/22 Fluconazole 150 mg PO DAILY #1 tablet 09/13/23 Phenazopyridine HCl [Pyridium] 100 mg PO 09/13/23 Sulfamethox/Trimeth 800/160 1 tablet PO BID 09/13/23 09/13/23 [Bactrim Ds] - Allergies Allergies/Adverse Reactions: Allergies Allergy/AdvReac Type Severity Reaction Status Date / Time cephalexin monohydrate * Allergy Rash Verified 09/13/23 13:50 [From [employer]] - Social History Does the pt smoke?: No Smoking Status: Never smoker Does the pt drink ETOH?: No Does the pt have substance abuse?: No - Immunizations Immunizations are current?: Yes - POLST Patient has POLST: No PD ED PE NORMAL - Vitals Vital signs reviewed: Yes - General General: Alert and oriented X 3, No acute distress - HEENT HEENT: PERRL, Moist mucous membranes - Neck Neck: Supple, no meningeal sign - Cardiac Cardiac: RRR, Strong equal pulses - Respiratory Respiratory: No respiratory distress, Clear bilaterally - Abdomen Abdomen: Soft, Non tender, Non distended - Female Female : Pt declined - Back Back: No CVA TTP - Derm Derm: Warm and dry - Extremities Extremities: No edema - Neuro Neuro: Alert and oriented X 3 - Psych Psych: Normal mood, Normal affect Results - Vitals Vitals: Vital Signs - 24 hr 09/13/23 09/13/23 09/13/23 13:50 15:54 18:13 Temperature 36.7 C Heart Rate 86 80 80 Respiratory 18 17 17 Rate Blood Pressure 115/79 125/77 119/81 H O2 Saturation 100 98 98 Oxygen O2 Source Room air - Labs Labs: Laboratory Tests 09/13/23 09/13/23 09/13/23 14:02 14:04 14:04 WBC 7.8 RBC 4.51 Hgb 13.0 Hct 41.0 MCV 90.9 MCH 28.8 MCHC 31.7 L RDW 12.2 Plt Count 304 MPV 8.7 Neut # (Auto) 4.4 Lymph # (Auto) 2.5 [place] # (Auto) 0.8 Eos # (Auto) 0.1 Baso # (Auto) 0.0 Absolute Nucleated RBC 0.00 Nucleated RBC % 0.0 Sodium 138 Potassium 4.0 Chloride 104 Carbon Dioxide 28 Anion Gap 6.0 BUN 9 Creatinine 0.7 Estimated GFR (MDRD) 96 Glucose 100 Calcium 9.9 Total Bilirubin 0.4 AST 14 ALT 11 Alkaline Phosphatase 49 Total Protein 7.3 Albumin 4.5 Globulin 2.8 Albumin/Globulin Ratio 1.6 Lipase 28 Urine Color YELLOW Urine Clarity CLEAR Urine pH 6.0 Ur Specific [place] <=1.005 Urine Protein NEGATIVE Urine Glucose (UA) NEGATIVE Urine Ketones NEGATIVE Urine Occult Blood NEGATIVE Urine Nitrite NEGATIVE Urine Bilirubin NEGATIVE Urine Urobilinogen 0.2 (NORMAL) Ur Leukocyte Esterase NEGATIVE Ur Microscopic Review NOT INDICATED Urine Culture Comments NOT INDICATED Urine HCG, Qual NEGATIVE C. glabrata (PCR) C. krusei (PCR) Stephanie species DNA Chlam trachomat DNA PCR N.gonorrhoeae DNA (PCR) T. vaginalis (PCR) Bact Vaginosis (PCR) 09/13/23 09/13/23 17:23 17:23 WBC RBC Hgb Hct MCV MCH MCHC RDW Plt Count MPV Neut # (Auto) Lymph # (Auto) [place] # (Auto) Eos # (Auto) Baso # (Auto) Absolute Nucleated RBC Nucleated RBC % Sodium Potassium Chloride Carbon Dioxide Anion Gap BUN Creatinine Estimated GFR (MDRD) Glucose Calcium Total Bilirubin AST ALT Alkaline Phosphatase Total Protein Albumin Globulin Albumin/Globulin Ratio Lipase Urine Color Urine Clarity Urine pH Ur Specific [place] Urine Protein Urine Glucose (UA) Urine Ketones Urine Occult Blood Urine Nitrite Urine Bilirubin Urine Urobilinogen Ur Leukocyte Esterase Ur Microscopic Review Urine Culture Comments Urine HCG, Qual C. glabrata (PCR) NEGATIVE C. krusei (PCR) NEGATIVE Stephanie species DNA NEGATIVE Chlam trachomat DNA PCR NEGATIVE N.gonorrhoeae DNA (PCR) NEGATIVE T. vaginalis (PCR) NEGATIVE TNP Bact Vaginosis (PCR) NEGATIVE PD Medical Decision Making - ED course Complexity details: reviewed results, re-evaluated patient, considered differential, d/w patient ED course: Patient is well-appearing, nontoxic. Afebrile. Negative urinalysis. Negative CBC, CMP. Discussed the pelvic exam, patient will prefer to self swab for bacterial vaginitis and STI. Patient is very well-appearing, nontoxic. Afebrile. No evidence of pyelonephritis, sepsis. Abdomen is soft, nontender nondistended. No peritoneal signs. Patient would like to go home at this time and I will call her with the results of her testing. Patient counseled regarding signs and symptoms for which I believe and urgent re-evaluation would be necessary. Patient with good understanding of and agreement to plan and is comfortable going home at this time This document was made in part using voice recognition software. While efforts are made to proofread this document, sound alike and grammatical errors may occur. Bacterial vaginitis panel and STI panel are negative. I called the patient with the results of her testing. Given the recent antibiotics we will trial her on a dose of Diflucan to see if that helps her symptoms. If her symptoms do not improve, recommend she return for repeat evaluation or follow-up closely with her doctor for further evaluation. Departure - Departure Disposition: 01 Home, Self Care Clinical Impression: Pelvic pain in female Condition: Good Instructions: ED Pelvic Pain [facility] Follow-Up: Shavon Jordan ARNP [Primary Care Provider] - Prescriptions: Fluconazole 150 mg PO DAILY #1 tablet Comments: Your laboratory testing does not show any acute abnormalities today. Your urinalysis is negative. Your liver test, kidney test and electrolytes are normal. We have sent off swabs for bacterial vaginitis, yeast infections, etc. These will return later tonight and I will call you with the results. Please return if you worsen. Forms: PCP List Discharge Date/Time: 09/13/23 18:13
[2023-09-13 18:22] VITALS: BP 119/81
[2023-09-13 20:10] LABS: BACTERIAL VAGINOSIS DNA NEGATIVE (NEGATIVE); CANDIDA GLABRATA DNA NEGATIVE (NEGATIVE); CANDIDA GROUP DNA NEGATIVE (NEGATIVE); CANDIDA KRUSEI DNA NEGATIVE (NEGATIVE); TRICHOMONAS VAGINALIS DNA NEGATIVE (NEGATIVE)
[2023-09-13 20:52] LABS: CHLAMYDIA TRACHOMATIS DNA NEGATIVE (NEGATIVE); NEISSERIA GONORRHOEAE DNA NEGATIVE (NEGATIVE)
== END 2023-09-13 18:13 | disposition home or self-care (01) ==
LOC: ED 13:39
DX: R10.2 Pelvic and perineal pain (principal); Z79.899 Other long term (current) drug therapy
CPT/HCPCS: 36415; 80053; 81001; 81003; 81025; 81514; 83690; 85025; 87086; 87491; 87591; 87661; 99283; 99284

== ENCOUNTER 2023-09-18 08:00 | Outpatient (CLI) | payer OTHER ==
[2023-09-18 18:38] LABS: BILIRUBIN,URINE NEGATIVE (NEGATIVE); GLUCOSE, URINE (UA) NEGATIVE (NEGATIVE); KETONES,URINE (UA) NEGATIVE (NEGATIVE); LEUKOCYTE ESTERASE, URINE NEGATIVE (NEGATIVE); NITRITE,URINE NEGATIVE (NEGATIVE); OCCULT BLOOD,URINE NEGATIVE (NEGATIVE); PROTEIN,URINE NEGATIVE (NEGATIVE); UROBILINOGEN,URINE 0.2 (NORMAL) E.U./dL (NORMAL)
[2023-09-18 18:47] LABS: CLARITY,URINE HAZY (CLEAR); RBC,URINE None Seen /HPF (0-5); WBC,URINE 0-3 /HPF (0-5)
[2023-09-18 18:48] LABS: BACTERIA,URINE None Seen /HPF (None Seen); SQUAMOUS EPITHELIAL CELL,UR RARE Squamous (<= Few)
== END 2023-09-18 23:59 | disposition home or self-care (01) ==
LOC: LAB.WCP 08:00
PROVIDERS: ATTEND Nurse Practitioner
DX: R30.0 Dysuria (principal)
CPT/HCPCS: 81001; 87086

== ENCOUNTER 2023-09-26 08:51 | Outpatient (CLI) | payer OTHER, MEDICAID ==
--- NOTE | 2023-09-26 16:11 | Ultrasound Report ---
PROCEDURE: Pelvic w/Transvaginal INDICATIONS: PELVIC PAIN TECHNIQUE: Transabdominal/transvaginal ultrasound of the pelvis was obtained. Endovaginal scanning wa s necessary due to incomplete visualization of the adnexal and endometrial structures by transabdomin al scanning. COMPARISON: None. FINDINGS: Uterine size: Uterus measures 9.1 x 5.0 x 5.6 cm, and is anteverted. Myometrium: The myometrium is homogeneous. Endometrium: The endometrium measures 15.3 mm in combined thickness. Right ovary: The right ovary measures 3.9 x 3.0 x 3.3 cm. Calculated ovarian volume 20.2 cc. Left ovary: The left ovary measures 2.7 x 1.6 x 3.0 cm. Calculated ovarian volume 6.8 cc. Other: Both ovaries have greater than 12 follicles IMPRESSION: Both ovaries show greater than 12 follicles. This finding has been correlated with polycystic ovarian syndrome in the proper clinical setting Reviewed by: Eyad Crowe MD on 09/26/2023 3:09 PM [place] Approved by: Eyad Crowe MD on 09/26/2023 3:09 PM [place] Station ID: [id number]
== END 2023-09-26 08:52 | disposition home or self-care (01) ==
LOC: DI 08:51
PROVIDERS: ATTEND Nurse Practitioner
DX: R14.0 Abdominal distension (gaseous) (principal); R10.2 Pelvic and perineal pain

== ENCOUNTER 2023-10-26 13:13 | Outpatient (CLI) | payer OTHER, MEDICAID ==
[2023-10-26 18:11] LABS: ESTIMATED AVERAGE GLUCOSE 97 mg/dL (70-100)
== END 2023-10-26 13:14 | disposition home or self-care (01) ==
LOC: LAB 13:13
PROVIDERS: ATTEND Nurse Practitioner
DX: E28.2 Polycystic ovarian syndrome (principal)
CPT/HCPCS: 36415; 83036